=== PATIENT | male | born 1955 | race Caucasian/White ===

== ENCOUNTER 2018-07-03 09:56 | Emergency (ER) | payer BC, SELFPAY ==
[2018-07-03 10:00] VITALS: BP 141/86; PULSE 76; RESP 14; TEMP 36.2; O2SAT 100; BMI 23.6
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
[2018-07-03 13:12] VITALS: BP 119/77; PULSE 66; RESP 20; O2SAT 96
== END 2018-07-03 13:12 | disposition home or self-care (01) ==
PROVIDERS: Emergency Provider Internal Medicine
DX: H81.10 Benign paroxysmal vertigo, unspecified ear (principal)
CPT/HCPCS: 99282